=== PATIENT | female | born 1960 | race Caucasian/White ===

== ENCOUNTER 2018-04-13 07:11 | Emergency (ER) | payer OTHER ==
--- OUTSIDE RECORDS SUMMARY | 2018-04-13 07:18 | XMS REPORT ---
:1960 External Reference #:[id number] Author Organization [facility] Address [address] [place] [address] Phone [phone] Care Team Providers Name Role Phone Libertad Nieves M.D. Primary Care Physician Unavailable Payers Type Date Identification Numbers Payment Provider Subscriber Commercial Effective: Policy Number: [employer] Ragini Santiago 2005 [id number] Group Number: [id number] [address] Group Name: [place] [address] PayID: [id number] Problems Date Description Provider Status Onset: 03/23/2018 Uncomplicated moderate persistent Alondra Uldrich, [employer]UCK [employer]IVING INSTRUCTOR-C Active asthma Onset: 12/18/2016 Pneumonia Zahraa Phill, [employer]UCK [employer]IVING INSTRUCTOR-C Active Onset: 12/18/2016 Mild persistent asthma Zahraa Phill, [employer]UCK DRIVING INSTRUCTOR-C Active Onset: 11/13/2016 Uncomplicated moderate persistent Zahraa Phill, [employer]UCK [employer]IVING INSTRUCTOR-C Active asthma Onset: 11/13/2016 Cough Zahraa Phill, [employer]UCK [employer]IVING INSTRUCTOR-C Active Onset: 11/13/2016 Body mass index 30+ - obesity Zahraa Phill, [employer]UCK DRIVING INSTRUCTOR-C Active Onset: 11/13/2016 Acute sinusitis Zahraa Phill, [employer]UCK [employer]IVING INSTRUCTOR-C Active Onset: 11/13/2016 Allergic rhinitis Zahraa Phill, [employer]UCK [employer]IVING INSTRUCTOR-C Active Onset: 10/21/2016 Atopic dermatitis Margarita Reid M.D. Active Onset: 10/21/2016 Exacerbation of mild persistent Margarita Reid M.D. Active asthma Family History Date Family Member(s) Problem(s) Comments General Diabetes mother General Heart Disease mother General Seasonal Allergies brother General Emphysema father General Prostate Cancer father Social History Type Date Description Comments Marital Status Legal Status: Lives With Alone Home Environment Uses air pretzel cooker Home Environment Has a window air conditioner Home Environment Negative For The basement is dry Home Environment Musty Basement Home Environment Unfinished Basement Home Environment Cotton Comforter Home Environment Mattress is 5 years old Home Environment Regular Mattress Home Environment Mattress is encased in an allergy proof case Home Environment Pillows are encased in an allergy proof case Home Environment Pillows are rubber (foam) Home Environment Does not use a dehumidifier Home Environment There are no draperies in the home Home Environment The home is not tyler Home Environment The floors are wood Home Environment Uses natural gas heating Home Environment Uses forced air heating Home Environment [place], 8 years Smoke-Free Home is smoke-free Smoke-Free Work is smoke-free Pets 2 cats new for 3 yrs 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 ETOH Use Currently consumes alcohol couple weekend nights Smoking Patient has never smoked Recreational Drug Use Denies Drug Use Allergies, Adverse Reactions, Alerts Date Description Reaction Status Severity Comments 01/04/2013 NKDA active Medications Medication Date Status Form Strength Qnty SIG Indications Ordering Provider Qnasl 03/23/ Active Aerosol 80mcg/Act 26.1un 1-2 sprays J30.9 Alondra 2017 its in each Uldrich, nostril [employer]UCK [employer]IVING INSTRUCTOR-C daily Flovent HFA 11/07/ Active Aerosol 110mcg/Act 12gm inhale 2 J45.30 Zuleyma 2017 puffs by Kerbein mouth twice RPA-C a day Aerochamber 11/07/ Active Misc 1units for use with Margarita Sarabia Plus Sergio-Vu 2016 angie Reid M.D. Proair HFA 10/21/ Active Aerosol 108(90Base 8.500g 2 puffs J45.31 Margarita Sarabia 2016 ) mcg/Act m inhalation Jeanette, every 4 M.D. hours as needed Omeprazole / Active Capsules 20mg West, 0000 DR Rj M.D. Fluoxetine / Active Capsules 10mg Reyes, HCL 0000 Dalton Jackson Clobetasol / Active Ointment 0.05% [place] Propionate 0000 Ale ramirez MD Immunizations CPT Code Status Date Vaccine Lot # [id number] Given Unknown Influenza Vaccine 68327 Given Unknown Influenza Vaccine Vital Signs Date Vital Result Comment 03/23/2018 Height 65 inches 5'5" Weight 240.00 lb Weight in kg's 108.864 Respiratory Rate 16 /min Heart Rate 90 /min O2 % BldC Oximetry 95 % BP Systolic 112 mmHg BP Diastolic 80 mmHg Asthma Control Test 22 BMI (Body Mass Index) 39.9 kg/m2 09/22/2017 Height 65 inches 5'5" Weight 236.00 lb Weight in kg's 107.050 Respiratory Rate 20 /min Heart Rate 82 /min O2 % BldC Oximetry 99 % BP Systolic 107 mmHg BP Diastolic 63 mmHg Asthma Control Test 25 BMI (Body Mass Index) 39.3 kg/m2 03/19/2017 Height 65 inches 5'5" Weight 227.00 lb Weight in kg's 102.967 Respiratory Rate 20 /min Heart Rate 72 /min O2 % BldC Oximetry 97 % BP Systolic 108 mmHg BP Diastolic 70 mmHg Asthma Control Test 25 BMI (Body Mass Index) 37.8 kg/m2 12/18/2016 Height 65 inches 5'5" Weight 224.00 lb Weight in kg's 101.606 Respiratory Rate 16 /min Heart Rate 82 /min O2 % BldC Oximetry 98 % BP Systolic 109 mmHg BP Diastolic 62 mmHg Asthma Control Test 22 BMI (Body Mass Index) 37.3 kg/m2 11/13/2016 Height 65 inches 5'5" Weight 227.00 lb Weight in kg's 102.967 Respiratory Rate 16 /min Heart Rate 91 /min O2 % BldC Oximetry 96 % BP Systolic 109 mmHg BP Diastolic 65 mmHg Asthma Control Test 19 BMI (Body Mass Index) 37.8 kg/m2 10/23/2016 Height 65 inches 5'5" Weight 226.00 lb Weight in kg's 102.514 Respiratory Rate 20 /min Heart Rate 92 /min O2 % BldC Oximetry 94 % BP Systolic 106 mmHg BP Diastolic 68 mmHg Asthma Control Test 23 BMI (Body Mass Index) 37.6 kg/m2 10/21/2016 Height 65 inches 5'5" Weight 226.00 lb Weight in kg's 102.514 Respiratory Rate 20 /min Heart Rate 98 /min O2 % BldC Oximetry 97 % BP Systolic 123 mmHg BP Diastolic 79 mmHg Asthma Control Test 18 BMI (Body Mass Index) 37.6 kg/m2 03/24/2013 Respiratory Rate 20 /min Heart Rate 85 /min O2 % BldC Oximetry 97 % BP Systolic 118 mmHg BP Diastolic 68 mmHg 01/18/2013 Weight 224.00 lb Weight in kg's 101.606 Respiratory Rate 16 /min Heart Rate 78 /min O2 % BldC Oximetry 89 % BP Systolic 112 mmHg BP Diastolic 68 mmHg 01/04/2013 Height 64 inches 5'4" Weight 224.00 lb Weight in kg's 101.606 Respiratory Rate 16 /min Heart Rate 111 /min O2 % BldC Oximetry 98 % BP Systolic 118 mmHg BP Diastolic 74 mmHg BMI (Body Mass Index) 38.4 kg/m2 Results Test Date Test Result H/L Range Note Surgical Pathology 04/15/2013 S RUN DATE: <SEE NOTE> 1 1 RUN DATE: 04/19/13 [facility] LAB LIVE PAGE 1 RUN TIME: [address] [place] [address] Specimen Inquiry Name: RAGINI SANTIAGO Noemí : [address]: Rj Salcedo MD Acct: [id number] Unit: [id number] AGE: 52 Location: [facility] [place] Re04/15/13 SEX: F Status: REG REF SPEC: [id number] ANT: 04/15/13- SUBM DR: Rj Salcedo MD REQ: [id number] RECD: 04/15/139 STATUS: GENEVA SILVA DR: Margarita Reid MD _ ORDERED: LEVEL IV/2 FINAL DIAGNOSIS 1) Stomach, biopsy: Fundic gland polyp. 2) Esophagus, at 28 cm., biopsy: A. Benign squamous mucosa with no significant pathologic abnormalities. B. No evidence of eosinophilic esophagitis. CLINICAL HISTORY Change in bowel habits, screening colonoscopy POST-OPERATIVE DIAGNOSIS Screening colonoscopy to terminal ileum. Normal mucosa, no polyps. Minimal distal diverticulosis, rectum normal. EGD ulcerative colitis, body of esophagus normal (biopsy for eosinophilic esophagitis). GE junction normal, stomach - multiple polyps biopsied. Pylorus and duodenum negative. Impression - non-diagnostic for throat complaints - resolved eosinophilic esophagitis. Stomach polyps secondary to PPI. GROSS DESCRIPTION 1) The specimen is received in formalin labeled Ragini Santiago, Julian Gastric Polyp and consists of three, chung-white, polypoid fragments of tissue that measure 0.5 x 0.4 x 0.3 cm., 0.5 x 0.5 x 0.3 cm., and 0.4 x 0.2 x 0.1 cm. Entirely submitted, one cassette. 2) The specimen is received in formalin labeled Ragini Santiago, Esophageal Bx at 28 cm. and consists of three, chung-white, fragments of tissue that measure 0.4 x 0.1 x 0.1 cm., 0.4 x 0.1 x 0.1 cm., and 0.3 x 0.2 x 0.1 cm. Submitted entirely, one cassette. CONTINUED ON NEXT PAGE * ML=Testing performed at Main Lab DEPARTMENT OF PATHOLOGY, [facility] [place], [place] [address] Brant Berkowitz M.D. Director [facility] Permit #[id number] RUN DATE: 04/19/13 [facility] LAB LIVE PAGE 2 RUN TIME: [address] [place] [address] Specimen Inquiry Patient: RAGINI SANTIAGO [id number] (Continued) GROSS DESCRIPTION (Continued) GROSS DESCRIPTION (Continued) Signed (signature on file) Rosalinda Loya MD [id number] END OF REPORT * ML=Testing performed at Main Lab DEPARTMENT OF PATHOLOGY, [address] [place] [address] Brant Berkowitz M.D. Director [facility] Permit #[id number] Procedures Date CPT Code Description Status 03/23/2018 84489 Pre PFT Completed 09/22/2017 78165 Pre PFT Completed 03/19/2017 46555 Pre PFT Completed 12/18/2016 39302 Pre PFT Completed 11/13/2016 75652 Pre PFT Completed 10/21/2016 45264 Pulmonary Function Test Completed 02/10/2013 50698 Skin Test Scratch # Of Units ____ Completed 01/18/2013 31598 Oxygen Level - Pulse Oximiter Completed 01/04/2013 89098 Oxygen Level - Pulse Oximiter Completed 01/04/2013 04669 Pulmonary Function Test Completed Encounters Type Date Location Provider CPT E/M Dx Office Visit 09/22/2017 10:20a [facility] Jennifer Potts, [facility] [address] J45.30 J30.9 Office Visit 03/19/2017 8:40a [place] [facility] Zahraa Pollock [facility] [address] J45.30 J30.9 Z68.37 Office Visit 12/18/2016 9:00a [place] [facility] Zahraa Salgueroncer [facility] [address] J18.9 J45.30 J30.9 Z68.37 Office Visit 11/13/2016 10:20a [place] [facility] Zahraa Salgueroncer [facility] [address] J45.40 J30.9 J01.90 R05 Z68.38 Office Visit 10/23/2016 4:00p [place] [facility] Zahraa Salgueroncer [facility] [address] J45.30 Z68.37 Office Visit 10/21/2016 9:00a [facility] Margarita Reid M.D. 35929 J45.31 J45.31 L20.9 Office Visit 03/24/2013 4:20p [place] [facility] Vita Lantigua [facility] [address] 493.00 530.13 477.9 691.8 Office Visit 02/10/2013 8:40a [place] [facility] Vita Lantigua [facility] [address] 493.00 691.8 530.13 477.9 Office Visit 01/04/2013 9:00a [facility] Margarita Reid M.D. 71448 530.13 477.9 691.8 493.00 Plan of Care Future Appointment(s):09/23/2018 8:40 am - Shiva Rodriguez M.D. at [facility]03/23/2018 - NISA SullivanP-CJ30.9 Allergic rhinitis, jpofjozrcppE75.40 Moderate persistent asthma, uncomplicatedNew Medication:Qnasl 80 mcg/ActFollow up:6 months with pre PFTRecommendations:Continue all medications as prescribed.Refrain from wearing perfumes/scented colognes while visitingour office. Increase the Flovent to 2 inhalations twice a day with aerochamber Try the Qnasl 2 sprays each nostril daily Try the Xyzal 1 daily, may re dose in the afternoon Continue the Proair 2 puffs every 4 hours as needed for cough, shortness of breath, wheezing, chest tightness or congestion.Monitor Albuterol use. If using more than 2x/week, please call the office as your asthma medications may need to be adjusted.
[2018-04-13 07:26] VITALS: BP 129/64
--- NOTE | 2018-04-13 07:53 | RAD ---
INDICATION: Atraumatic pain at the left base of the fifth metatarsal COMPARISON: None. TECHNIQUE: 3 views of the left foot were obtained. FINDINGS: The adequately corticated bones are properly aligned. Joint spaces appear maintained. No fracture, dislocation or focal bony abnormality is seen. IMPRESSION: Normal radiograph of the left foot. If the patient's symptoms persist, follow-up imaging is recommended.
--- NOTE | 2018-04-13 08:07 | UC ---
Lower Extremity/Ankle HPI - HPI Summary HPI Summary: left foot pain x 2 weeks + injury to her left foot 2 weeks ago as she jumped in the pool pain is sharp , 5 out of 10 , no radiation , worse with first few steps , improves with ice and rest - History of Current Complaint Chief Complaint: UCLowerExtremity Stated Complaint: LT FOOT COMP Time Seen by Provider: 04/13/18 07:20 Hx Obtained From: Patient ?: No Onset/Duration: Sudden Onset, Lasting Weeks - 2, Still Present Severity Initially: Moderate Severity Currently: Moderate Pain Intensity: 1 Aggravating Factor(s): Standing, Ambulation Alleviating Factor(s): Rest, Elevation, Ice Able to Bear Weight: Yes - Allergies/Home Medications Allergies/Adverse Reactions: Allergies Allergy/AdvReac Type Severity Reaction Status Date / Time No Known Allergies Allergy Verified 04/13/18 07:26 Home Medications: Home Medications Beclomethasone Dipropionate [Qnasl] 8.7 gm NS Q8HR PRN 04/13/18 [History Confirmed 04/13/18] Fluticasone DISKUS 100 MCG(NF) [Flovent Diskus 100 MCG(NF)] 1 puff INH BID 04/13 [History Confirmed 04/13/18] Levocetirizine Dihydrochloride [Xyzal Allergy 24Hr] 5 mg PO DAILY PRN 04/13/18 [ History Confirmed 04/13/18] PMH/Surg Hx/FS Hx/Imm Hx Cardiovascular History: Deep Vein Thrombosis GI/ History: Gastroesophageal Reflux Psychological History: Anxiety - Surgical History Surgical History: Yes Surgery Procedure, Year, and Place: APPENDIX AGE 14. HYSTERECTOMY 2005 - Family History Known Family History: Positive: None Negative: Blood Disorder - Social History Alcohol Use: Weekly Alcohol Amount: weekends Substance Use Type: None Smoking Status (MU): Never Smoked Tobacco - Immunization History Most Recent Influenza Vaccination: Fall 2014 Review of Systems Constitutional: Negative Skin: Negative Eyes: Negative ENT: Negative Respiratory: Negative Is Patient Immunocompromised?: No All Other Systems Reviewed And Are Negative: Yes Physical Exam Triage Information Reviewed: Yes Appearance: Well-Appearing, No Pain Distress, Well-Nourished Vital Signs: Initial Vital Signs Temp 97.3 F 04/13/18 07:18 Pulse 88 04/13/18 07:18 Resp 16 04/13/18 07:18 BP 129/64 04/13/18 07:18 Pulse Ox 98 04/13/18 07:18 Vital Signs Reviewed: Yes Eyes: Positive: Conjunctiva Clear ENT: Positive: Normal ENT inspection, Hearing grossly normal, Pharynx normal Neck: Positive: Supple, Nontender, No Lymphadenopathy Respiratory: Positive: Chest non-tender, Lungs clear, Normal breath sounds Cardiovascular: Positive: RRR, No Murmur, Pulses Normal Musculoskeletal: Positive: Other: - left foot: no swelling, no erythema, + tendernss left 4th and 5th metatarsal , good ROM Diagnostics - Laboratory Diagnostic Studies Completed/Ordered: IMPRESSION: Normal radiograph of the left foot. Lower Extremity Course/Dx - Differential Dx/Diagnosis Provider Diagnoses: left foot pain. left foot sprain Discharge - Sign-Out/Discharge Documenting (check all that apply): Patient Departure - Discharge Plan Condition: Stable Disposition: HOME Patient Education Materials: Metatarsalgia (DC) Referrals: Libertad Nieves MD [Primary Care Provider] - Additional Instructions: normal left foot xray cont. with rest, ice, take ibuprofen as needed for pain follow up with your pcp in 2 weeks if not better - Billing Disposition and Condition Condition: STABLE Disposition: Home
== END 2018-04-13 08:16 | disposition home or self-care (01) ==
LOC: UCCORT 07:11
DX: M79.672 Pain in left foot (principal); S93.402A Sprain of unspecified ligament of left ankle, initial encounter; W16.512A Jumping or diving into swimming pool striking water surface causing other injury, initial encounter; Y93.39 Activity, other involving climbing, rappelling and jumping off; Y92.9 Unspecified place or not applicable
CPT/HCPCS: 99211; G0463